=== PATIENT | female | born 1970 | race Caucasian/White ===

== ENCOUNTER → 2017-01-21 | Outpatient (CLI) | payer MEDICARE, OTHER ==
[~2017-01-21] MED LIST: BACLOFEN10 MG PO; BETASERON0.3 MG PO; DITROPAN5 MG G-TUBE; DOXYCYCLINE HY100 MG PO; KEFLEX500 MG PO; OXYCODONE-APAP1 EAC4 PO; PAMELOR10 MG PO; ULTRAM50 MG PO
== END | disposition home or self-care (01) ==
LOC: CDC 11:16
DX: I49.3 Ventricular premature depolarization (principal)
CPT/HCPCS: 93000

== ENCOUNTER → 2017-02-04 | Outpatient (CLI) | payer MEDICARE, OTHER | END | disposition home or self-care (01) | LOC: CDC 14:12 | DX: G35 Multiple sclerosis (principal) | CPT/HCPCS: 93000 ==

== ENCOUNTER → 2017-02-04 | Outpatient (CLI) | payer MEDICARE, OTHER | END | disposition home or self-care (01) | LOC: CDC 08:12 | DX: G35 Multiple sclerosis (principal) | CPT/HCPCS: 93000 ==